=== PATIENT | female | born 1975 | race Caucasian/White ===

== ENCOUNTER 2019-10-05 13:39 | Emergency (ER) | payer MEDICAID, OTHER ==
[~2019-10-05] VITALS: Ht 170.2 cm; Wt 113.6 kg
[2019-10-05 13:50] VITALS: BP 144/90
[2019-10-05] MEDS ORDERED: HYDROcodone/acetaminophen 5mg/325mg tablet PO ONE (14:40)
[2019-10-05] MEDS ORDERED: ondansetron 4mg rapidly disintigrating tab PO ONE (14:40)
[2019-10-05] MEDS ORDERED: IBUP-1984 PO (14:45)
== END 2019-10-05 15:29 | disposition home or self-care (01) ==
LOC: ER 13:39
DX: S93.401A Sprain of unspecified ligament of right ankle, initial encounter (principal); G89.29 Other chronic pain; F12.90 Cannabis use, unspecified, uncomplicated; F15.90 Other stimulant use, unspecified, uncomplicated; Z90.710 Acquired absence of both cervix and uterus; Z88.1 Allergy status to other antibiotic agents; X50.1XXA Overexertion from prolonged static or awkward postures, initial encounter; Y93.01 Activity, walking, marching and hiking; Y92.89 Other specified places as the place of occurrence of the external cause; Y99.9 Unspecified external cause status
CPT/HCPCS: 73610; 99284

== ENCOUNTER 2019-10-07 12:42 | Emergency (ER) | payer MEDICAID, OTHER ==
[~2019-10-07] VITALS: Ht 170.2 cm; Wt 115.7 kg
[~2019-10-07 12:42] MED LIST: IBUP-1984 PO
[2019-10-07 12:54] VITALS: BP 132/82
[2019-10-07] MEDS ORDERED: LAMO50TA PO (14:22)
[2019-10-07] MEDS ORDERED: LURA20TA PO (14:22)
[2019-10-07] MEDS ORDERED: SERT50TA PO (14:22)
[2019-10-07] MEDS ORDERED: TRAZ-251 PO (14:22)
== END 2019-10-07 14:43 | disposition home or self-care (01) ==
LOC: ER 12:43
DX: F31.9 Bipolar disorder, unspecified (principal); I50.9 Heart failure, unspecified; G89.29 Other chronic pain; F10.99 Alcohol use, unspecified with unspecified alcohol-induced disorder; F12.90 Cannabis use, unspecified, uncomplicated; F15.90 Other stimulant use, unspecified, uncomplicated; Z76.0 Encounter for issue of repeat prescription; Z90.710 Acquired absence of both cervix and uterus; Z88.1 Allergy status to other antibiotic agents; Z88.8 Allergy status to other drugs, medicaments and biological substances; Z79.899 Other long term (current) drug therapy; Y90.9 Presence of alcohol in blood, level not specified
CPT/HCPCS: 99283

== ENCOUNTER 2020-03-29 18:16 | Emergency (ER) | payer MEDICAID, OTHER ==
[~2020-03-29] VITALS: Ht 175.3 cm; Wt 113.6 kg
[~2020-03-29 18:16] MED LIST changes: -IBUP-1984 PO; +LURA20TA PO; +TRAZ-251 PO
[2020-03-29 18:44] VITALS: BP 176/99
[2020-03-29] MEDS ORDERED: PERM60CR19 TP ×2 (18:55→19:06)
[2020-03-29] MEDS ORDERED: CETI10TA18 PO (19:07)
== END 2020-03-29 19:25 | disposition home or self-care (01) ==
LOC: ER 18:17
DX: B86 Scabies (principal); I11.0 Hypertensive heart disease with heart failure; I50.9 Heart failure, unspecified; G89.29 Other chronic pain; F12.90 Cannabis use, unspecified, uncomplicated; F15.90 Other stimulant use, unspecified, uncomplicated; Z90.710 Acquired absence of both cervix and uterus; Z72.89 Other problems related to lifestyle; Z88.1 Allergy status to other antibiotic agents; Z88.8 Allergy status to other drugs, medicaments and biological substances; Z79.899 Other long term (current) drug therapy
CPT/HCPCS: 99283

== ENCOUNTER 2020-04-19 18:01 | Emergency (ER) | payer MEDICAID ==
[~2020-04-19] VITALS: Ht 175.3 cm; Wt 114.5 kg
[~2020-04-19 18:01] MED LIST changes: +CETI10TA18 PO; +PERM60CR19 TP
--- NOTE | 2020-04-19 18:32 | NUR ---
Dr. Gloria made aware of the patient's symptoms on the COVID-19 screening, she has been tested for COVID-19 twice and both were negative, most recent two weeks ago.
[2020-04-19 18:53] LABS: BASOPHILS # (AUTO) 0.1 X10'3 (0-0.2); BASOPHILS % (AUTO) 0.4 % (0-1); EOSINOPHILS % (AUTO) 0.3 % (0-6); HEMATOCRIT 41.5 % (35.0-45.0); HEMOGLOBIN 13.9 g/dl (12.0-16.0); LYMPHOCYTES # (AUTO) 1.7 X10'3 (1.1-4.8); LYMPHOCYTES % (AUTO) 11.5 % (21-51); MEAN CORPUSCULAR HGB CONC 33.5 g/dL (33.0-36.5); MEAN CORPUSCULAR VOLUME 86.8 FL (78-98); MEAN PLATELET VOLUME 10.1 FL (7.4-10.4); NEUTROPHILS # (AUTO) 11.9 X10'3 (1.8-7.7); NEUTROPHILS % (AUTO) 80.8 % (42-75); PLATELET COUNT 180 X10'3 (140-440); RED BLOOD COUNT 4.78 X10'6 (4.20-5.60); RED CELL DISTRIBUTION WIDTH 13.4 % (11.5-14.5); WHITE BLOOD COUNT 14.7 X10'3 (4.5-11.0)
[2020-04-19 19:02] LABS: ALANINE AMINOTRANSFERASE 46 U/L (12-78); ALBUMIN/GLOBULIN RATIO 0.9 (1.1-1.5); ALKALINE PHOSPHATASE 85 IU/L (46-116); ANION GAP 9 (8-16); ASPARTATE AMINO TRANSFERASE 24 U/L (10-37); BILIRUBIN,TOTAL 0.4 MG/DL (0.1-1.0); BLOOD UREA NITROGEN 17 MG/DL (7-18); BUN/CREATININE RATIO 17.7 (6.6-38.0); CALCIUM 8.9 MG/DL (8.5-10.1); CHLORIDE 101 MMOL/L (99-107); CREATININE 0.96 MG/DL (0.40-0.90); GLUCOSE 108 MG/DL (70-104); POTASSIUM 3.7 MMOL/L (3.5-5.1); SODIUM 135 MMOL/L (135-145); TOTAL CARBON DIOXIDE 24.6 MMOL/L (24-32); TOTAL PROTEIN 8.3 G/DL (6.4-8.2); eGFR 63 ML/MIN
[2020-04-19 19:22] LABS: D-DIMER 0.32 MG/L FEU (0-0.50)
[2020-04-19] MEDS ORDERED: hydrOXYzine 25 MG tablet PO ONE (19:30)
[2020-04-19] MEDS ORDERED: HYDR50TA65 PO (19:32)
[2020-04-19 19:59] VITALS: BP 128/101
== END 2020-04-19 20:01 | disposition home or self-care (01) ==
LOC: ER 18:01
DX: R07.81 Pleurodynia (principal); R00.2 Palpitations; J02.9 Acute pharyngitis, unspecified; I11.0 Hypertensive heart disease with heart failure; I50.9 Heart failure, unspecified; G89.29 Other chronic pain; F12.90 Cannabis use, unspecified, uncomplicated; F15.90 Other stimulant use, unspecified, uncomplicated; Z90.710 Acquired absence of both cervix and uterus; Z72.89 Other problems related to lifestyle; Z88.1 Allergy status to other antibiotic agents; Z88.8 Allergy status to other drugs, medicaments and biological substances; Z79.899 Other long term (current) drug therapy
CPT/HCPCS: 36415; 71045; 80053; 83880; 84484; 85025; 85379; 93005; 99285; Q0177

== ENCOUNTER 2020-11-26 17:02 | Emergency (ER) | payer MEDICAID ==
[~2020-11-26] VITALS: Ht 175.3 cm; Wt 84.3 kg
[~2020-11-26 17:02] MED LIST changes: +CEPH-572 PO; +HYDR50TA65 PO
[2020-11-26 17:06] VITALS: BP 132/81
[2020-11-26] MEDS ORDERED: VANCOmycin 1250MG/NS 250ml Bag 250 ML IV SCH (18:30)
[2020-11-26] MEDS ORDERED: ketorolac trometh. 30mg/ml inj. IV ONE (18:30)
[2020-11-26] MEDS ORDERED: LIDOcaine 1% 30ml preserv. free vial SQ STA (19:01)
[2020-11-26] MEDS ORDERED: ibuprofen tablet 400 MG TABLET PO ONE (19:10)
[2020-11-26] MEDS ORDERED: tetanus & diphtheria toxoid (Td) vaccine 0.5ml IMVAC ONE (19:10)
[2020-11-26] MEDS ORDERED: TETanus/Pertussis (Acell)/Diphther VAC/PF (Tdap-Adult) 0.5ml syringe IMVAC ONE (19:20)
[2020-11-26] MEDS ORDERED: HYDROcodone/acetaminophen 10/325mg tab PO ONE (20:00)
[2020-11-26] MEDS ORDERED: CEPH500C2 PO (20:01)
[2020-11-26] MEDS ORDERED: SULF1TAB49 PO (20:01)
[2020-11-26] MEDS ORDERED: HYDR-3965 PO (20:02)
[2020-11-26] MEDS ORDERED: CEFTRIAXONE 500 MG VIAL IM ONE (20:10)
[2020-11-26] MEDS ORDERED: CefTRIAXone 1000mg IM Kit (w/lidocaine diluent) IM ONE (20:25)
== END 2020-11-26 20:49 | disposition home or self-care (01) ==
LOC: ER 17:02
DX: L02.416 Cutaneous abscess of left lower limb (principal); I50.9 Heart failure, unspecified; I11.0 Hypertensive heart disease with heart failure; G89.29 Other chronic pain; F12.90 Cannabis use, unspecified, uncomplicated; F15.90 Other stimulant use, unspecified, uncomplicated; Z90.710 Acquired absence of both cervix and uterus; Z88.2 Allergy status to sulfonamides; Z88.8 Allergy status to other drugs, medicaments and biological substances; Z79.2 Long term (current) use of antibiotics; Z79.899 Other long term (current) drug therapy
CPT/HCPCS: 10060; 76882; 87070; 87077; 87186; 90471; 90715; 96372; 99284; J0696

== ENCOUNTER 2021-03-28 10:10 | Emergency (ER) | payer MEDICAID ==
[~2021-03-28] VITALS: Ht 175.3 cm; Wt 115.8 kg
[2021-03-28 11:27] VITALS: BP 155/83
[2021-03-28 11:59] LABS: URINE HCG NEGATIVE (NEG)
[2021-03-28 12:00] LABS: BASOPHILS % (AUTO) 0.5 % (0-1); EOSINOPHILS # (AUTO) 0.1 X10'3 (0-0.9); EOSINOPHILS % (AUTO) 0.6 % (0-6); HEMATOCRIT 43.5 % (35.0-45.0); HEMOGLOBIN 14.7 g/dl (12.0-16.0); LYMPHOCYTES # (AUTO) 1.5 X10'3 (1.1-4.8); LYMPHOCYTES % (AUTO) 17.7 % (21-51); MEAN CORPUSCULAR HEMOGLOBIN 29.2 PG (27.0-31.0); MEAN CORPUSCULAR HGB CONC 33.8 g/dL (33.0-36.5); MEAN CORPUSCULAR VOLUME 86.3 FL (78-98); MEAN PLATELET VOLUME 9.8 FL (7.4-10.4); MONOCYTES # (AUTO) 0.5 X10'3 (0-0.9); MONOCYTES % (AUTO) 6.2 % (2-12); NEUTROPHILS # (AUTO) 6.2 X10'3 (1.8-7.7); PLATELET COUNT 193 X10'3 (140-440); RED BLOOD COUNT 5.04 X10'6 (4.20-5.60); WHITE BLOOD COUNT 8.2 X10'3 (4.5-11.0)
[2021-03-28 12:02] LABS: CLARITY,URINE CLOUDY (Clear); COLOR,URINE YELLOW (Yellow); GLUCOSE, URINE NEGATIVE (Neg); KETONES,URINE NEGATIVE (Neg); LEUKOCYTE ESTERASE ,URINE SMALL (Neg); NITRITES, URINE NEGATIVE (Neg); OCCULT BLOOD,URINE SMALL (Neg); PH,URINE 5.5 (4.8-8.0); PROTEIN,URINE NEGATIVE (Neg); UROBILINOGEN,URINE 0.2 E.U/dL (0.2-1.0)
[2021-03-28 12:06] LABS: UA COLLECTION TYPE CLN CATCH MIDSTREAM
[2021-03-28 12:11] LABS: SQUAMOUS EPITHELIAL CELL,UR MANY /LPF (FEW)
[2021-03-28 12:12] LABS: MUCUS STRANDS FEW /LPF (Neg)
[2021-03-28 12:12] LABS: ANION GAP 10 (8-16); BILIRUBIN,TOTAL 0.6 MG/DL (0.1-1.0); BLOOD UREA NITROGEN 11 MG/DL (7-18); BUN/CREATININE RATIO 11.1 (6.6-38.0); CALCIUM 8.5 MG/DL (8.5-10.1); CHLORIDE 103 MMOL/L (99-107); CREATININE 0.99 MG/DL (0.40-0.90); GLUCOSE 98 MG/DL (70-104); SODIUM 139 MMOL/L (135-145); TOTAL CARBON DIOXIDE 26.5 MMOL/L (24-32); TOTAL PROTEIN 7.5 G/DL (6.4-8.2); eGFR 61 ML/MIN
[2021-03-28 12:13] LABS: ALANINE AMINOTRANSFERASE 161 U/L (12-78); ALBUMIN 3.5 G/DL (3.4-5.0); ALBUMIN/GLOBULIN RATIO 0.9 (1.1-1.5); ALKALINE PHOSPHATASE 80 IU/L (46-116); ASPARTATE AMINO TRANSFERASE 89 U/L (10-37)
[2021-03-28 12:13] LABS: BACTERIA,URINE 2+ /HPF (Neg); URINE AMPHETAMINE SCREEN NEGATIVE (Neg); URINE BARBITUATE SCREEN NEGATIVE (Neg); URINE BENZODIAZEPINES SCREEN NEGATIVE (Neg); URINE CANNABINOID SCREEN POSITIVE (Neg); URINE COCAINE SCREEN NEGATIVE (Neg); URINE METHADONE SCREEN NEGATIVE (Neg); URINE OPIATE SCREEN NEGATIVE (Neg); URINE PHENCYCLIDINE SCREEN NEGATIVE (Neg)
[2021-03-28 12:14] LABS: RBC,URINE 0-2 /HPF (0-2)
[2021-03-28 12:16] LABS: TRANSITIONAL EPI CELLS,URINE FEW /HPF
[2021-03-28 12:25] LABS: ETHANOL < 0.010 GM/DL (0.0-0.010)
--- NOTE | 2021-03-28 15:14 | NUR ---
CHANGED INTO GREEN SCRUBS & BELONGINGS COLLECTED.
--- NOTE | 2021-03-28 19:00 | NUR ---
Patient provided with dinner tray.
[2021-03-28] MEDS ORDERED: LURA60TA PO (19:05)
[2021-03-28] MEDS ORDERED: HYDR50TA65 PO (19:10)
[2021-03-28] MEDS ORDERED: TRAZ-251 PO (19:10)
[2021-03-28] MEDS ORDERED: hydrOXYzine 25 MG tablet PO PRN (20:00)
--- NOTE | 2021-03-28 20:00 | NUR ---
The patient moved to bed 21 in the ER overflow. She was very pleasant and cooperative when approached for the evening assessment. She was very open and honest about sharing her struggles with her mental health leading to relapses with substances. She stated that she has not been taking medications as rx'd. She reports having suicidal thoughts for the past 10 days. She denies prior psychiatric hosptializations. Psychotic symptoms are denied and none were apparent during one to one. She reports racing thoughts and mood lability. She has a 13 year old daughter who lives with her father and she stated that is her reason for living.
--- NOTE | 2021-03-28 20:04 | NUR ---
The patient has been accepted at [facility] by GIN Gonzáles. She will be picked up tomorrow.
[2021-03-28] MEDS ORDERED: lurasidone 60mg tablet PO SCH (21:00)
[2021-03-28] MEDS ORDERED: traZODone 50mg tablet PO SCH (21:00)
--- NOTE | 2021-03-28 21:34 | NUR ---
Covid swab to the lab. Valuables to the safe via registration. HS snack given with [employer]
--- NOTE | 2021-03-28 22:44 | NUR ---
The patient appears to be sleeping
[2021-03-29] MEDS ORDERED: hydrOXYzine 25 MG tablet PO SCH
--- NOTE | 2021-03-29 01:07 | NUR ---
The patient appears to be sleeping
--- NOTE | 2021-03-29 02:51 | NUR ---
The patient appears to be sleeping
--- NOTE | 2021-03-29 05:07 | NUR ---
The patient appears to be sleeping
--- NOTE | 2021-03-29 08:17 | NUR ---
[facility] CALLED AND WILL BE PICKING PT UP AROUND 9A
[2021-03-29] MEDS ORDERED: hydrOXYzine 25 MG tablet PO PRN (21:00)
== END 2021-03-29 10:13 ==
LOC: ER 10:11
DX: F31.81 Bipolar II disorder (principal); Z20.822 Contact with and (suspected) exposure to COVID-19; R45.851 Suicidal ideations; I11.0 Hypertensive heart disease with heart failure; I50.9 Heart failure, unspecified; G89.29 Other chronic pain; F12.90 Cannabis use, unspecified, uncomplicated; F15.90 Other stimulant use, unspecified, uncomplicated; Z90.710 Acquired absence of both cervix and uterus; Z88.1 Allergy status to other antibiotic agents; Z79.899 Other long term (current) drug therapy
CPT/HCPCS: 36415; 80053; 80305; 80320; 81001; 81025; 84443; 85025; 87635; 99285; C9803; Q0177

== ENCOUNTER 2021-12-29 10:18 | Emergency (ER) | payer MEDICAID ==
[~2021-12-29] VITALS: Ht 175.3 cm; Wt 109.0 kg
[~2021-12-29 10:18] MED LIST changes: -CEPH-572 PO; -CETI10TA18 PO; -LURA20TA PO; +LURA60TA PO; -PERM60CR19 TP
[2021-12-29 10:35] VITALS: BP 163/90
[2021-12-29] MEDS ORDERED: QUET-1 PO (11:14)
[2021-12-29] MEDS ORDERED: LURA80TA2 PO (11:14)
[2021-12-29 11:50] LABS: BASOPHILS % (AUTO) 0.7 % (0-1); EOSINOPHILS # (AUTO) 0.1 X10'3 (0-0.9); EOSINOPHILS % (AUTO) 0.9 % (0-6); HEMOGLOBIN 14.7 g/dl (12.0-16.0); LYMPHOCYTES # (AUTO) 1.4 X10'3 (1.1-4.8); LYMPHOCYTES % (AUTO) 22.5 % (21-51); MEAN CORPUSCULAR HEMOGLOBIN 29.1 PG (27.0-31.0); MEAN CORPUSCULAR HGB CONC 34.3 g/dL (33.0-36.5); MEAN CORPUSCULAR VOLUME 84.7 FL (78-98); MEAN PLATELET VOLUME 9.3 FL (7.4-10.4); MONOCYTES # (AUTO) 0.6 X10'3 (0-0.9); MONOCYTES % (AUTO) 8.8 % (2-12); NEUTROPHILS # (AUTO) 4.3 X10'3 (1.8-7.7); NEUTROPHILS % (AUTO) 67.1 % (42-75); PLATELET COUNT 181 X10'3 (140-440); RED BLOOD COUNT 5.07 X10'6 (4.20-5.60); WHITE BLOOD COUNT 6.4 X10'3 (4.5-11.0)
[2021-12-29 12:09] LABS: ALANINE AMINOTRANSFERASE 83 U/L (12-78); ALBUMIN 3.5 G/DL (3.4-5.0); ALBUMIN/GLOBULIN RATIO 0.8 (1.1-1.5); ALKALINE PHOSPHATASE 89 IU/L (46-116); ANION GAP 10 (8-16); ASPARTATE AMINO TRANSFERASE 46 U/L (10-37); BILIRUBIN,TOTAL 0.6 MG/DL (0.1-1.0); BLOOD UREA NITROGEN 12 MG/DL (7-18); BUN/CREATININE RATIO 12.6 (6.6-38.0); CALCIUM 8.3 MG/DL (8.5-10.1); CHLORIDE 102 MMOL/L (99-107); CREATININE 0.95 MG/DL (0.40-0.90); GLUCOSE 126 MG/DL (70-104); POTASSIUM 3.5 MMOL/L (3.5-5.1); SODIUM 138 MMOL/L (135-145); TOTAL CARBON DIOXIDE 25.9 MMOL/L (24-32); TOTAL PROTEIN 7.8 G/DL (6.4-8.2); eGFR 64 ML/MIN
== END 2021-12-29 12:30 | disposition home or self-care (01) ==
LOC: ER 10:18
DX: S31.831A Laceration without foreign body of anus, initial encounter (principal); R10.2 Pelvic and perineal pain; I11.0 Hypertensive heart disease with heart failure; I50.9 Heart failure, unspecified; G89.29 Other chronic pain; F12.90 Cannabis use, unspecified, uncomplicated; F15.90 Other stimulant use, unspecified, uncomplicated; Z88.1 Allergy status to other antibiotic agents; Z90.710 Acquired absence of both cervix and uterus; Z72.89 Other problems related to lifestyle; Z88.8 Allergy status to other drugs, medicaments and biological substances; Z79.899 Other long term (current) drug therapy; X58.XXXA Exposure to other specified factors, initial encounter; Y93.89 Activity, other specified; Y92.89 Other specified places as the place of occurrence of the external cause; Y99.8 Other external cause status
CPT/HCPCS: 36415; 80053; 85025; 99283

== ENCOUNTER 2022-02-25 22:58 | Emergency (ER) | payer MEDICAID ==
[~2022-02-25] VITALS: Ht 175.3 cm; Wt 109.1 kg
[~2022-02-25 22:58] MED LIST changes: -LURA60TA PO; +LURA80TA2 PO; +QUET-1 PO; -TRAZ-251 PO
[2022-02-26] MEDS ORDERED: LIDOcaine 1% W/epiNEPHrine 1:100,000 20ml vial IJ ONE (03:10)
[2022-02-26] MEDS ORDERED: naproxen 500mg tablet PO ONE (03:10)
[2022-02-26] MEDS ORDERED: sulfamethoxazole/trimethoprim DS (800/160mg) tablet PO ONE (03:10)
[2022-02-26] MEDS ORDERED: SULF1TAB49 PO (04:15)
[2022-02-26 04:23] VITALS: BP 160/98
== END 2022-02-26 04:25 | disposition home or self-care (01) ==
LOC: ER 22:59
DX: L02.413 Cutaneous abscess of right upper limb (principal); L03.113 Cellulitis of right upper limb; I11.0 Hypertensive heart disease with heart failure; I50.9 Heart failure, unspecified; G89.29 Other chronic pain; F12.90 Cannabis use, unspecified, uncomplicated; F15.90 Other stimulant use, unspecified, uncomplicated; Z90.710 Acquired absence of both cervix and uterus; Z88.1 Allergy status to other antibiotic agents; Z88.8 Allergy status to other drugs, medicaments and biological substances; Z79.899 Other long term (current) drug therapy
CPT/HCPCS: 10060; 99283

== ENCOUNTER 2022-10-23 00:08 | Emergency (ER) | payer MEDICAID ==
[~2022-10-23] VITALS: Ht 175.3 cm; Wt 106.8 kg
[2022-10-23 00:25] VITALS: BP 127/84
[2022-10-23] MEDS ORDERED: ketorolac trometh inj. 60 MG/2 ML VIAL IM ONE (01:25)
[2022-10-23] MEDS ORDERED: acetaminophen 325mg tablet PO ONE (01:25)
[2022-10-23] MEDS ORDERED: HYDR-3965 PO (01:29)
[2022-10-23] MEDS ORDERED: CYCL-1 PO (01:29)
== END 2022-10-23 02:05 | disposition home or self-care (01) ==
LOC: ER 00:09
DX: M54.50 Low back pain, unspecified (principal); I11.0 Hypertensive heart disease with heart failure; I50.9 Heart failure, unspecified; G89.29 Other chronic pain; F12.90 Cannabis use, unspecified, uncomplicated; F15.20 Other stimulant dependence, uncomplicated; Z88.1 Allergy status to other antibiotic agents; Z91.041 Radiographic dye allergy status; Z88.8 Allergy status to other drugs, medicaments and biological substances
CPT/HCPCS: 96372; 99283; J1885

== ENCOUNTER 2023-03-16 11:44 | Emergency (ER) | payer MEDICAID ==
[~2023-03-16] VITALS: Ht 170.2 cm; Wt 110.0 kg
[~2023-03-16 11:44] MED LIST changes: +CYCL-1 PO
[2023-03-16 12:05] VITALS: BP 156/90
[2023-03-16] MEDS ORDERED: ketorolac trometh inj. 60 MG/2 ML VIAL IM ONE (13:20)
[2023-03-16] MEDS ORDERED: triamcinolone acetonide 40mg/ml inj IM ONE (13:20)
[2023-03-16] MEDS ORDERED: IBUP-1985 PO (13:28)
[2023-03-16] MEDS ORDERED: TRAM50TA2 PO (13:28)
[2023-03-16] MEDS ORDERED: ONDA8TAB13 PO (13:28)
== END 2023-03-16 13:49 | disposition home or self-care (01) ==
LOC: ER 11:44
DX: M54.50 Low back pain, unspecified (principal); R20.0 Anesthesia of skin; M79.605 Pain in left leg; R53.1 Weakness; I11.0 Hypertensive heart disease with heart failure; I50.9 Heart failure, unspecified; G89.29 Other chronic pain; F12.90 Cannabis use, unspecified, uncomplicated; F15.90 Other stimulant use, unspecified, uncomplicated; Z72.89 Other problems related to lifestyle; Z90.710 Acquired absence of both cervix and uterus; Z88.1 Allergy status to other antibiotic agents; Z88.8 Allergy status to other drugs, medicaments and biological substances; Z79.899 Other long term (current) drug therapy
CPT/HCPCS: 96372; 99284; J1885; J3301

== ENCOUNTER 2024-07-31 23:31 | Emergency (ER) | payer BC, MEDICAID ==
[~2024-07-31] VITALS: Ht 170.2 cm; Wt 114.7 kg
[~2024-07-31 23:31] MED LIST changes: +IBUP-1985 PO; +ONDA-245 PO
[2024-07-31 23:35] VITALS: TEMP 97.1
[2024-08-01] MEDS ORDERED: LISI10TA27 PO (01:09)
[2024-08-01 01:14] LABS: BASOPHILS # (AUTO) 0.1 X10'3 (0-0.2); BASOPHILS % (AUTO) 0.7 % (0-1); MONOCYTES # (AUTO) 0.7 X10'3 (0-0.9); NEUTROPHILS # (AUTO) 5.3 X10'3 (1.8-7.7); PLATELET COUNT 202 X10'3 (140-440)
[2024-08-01 01:16] LABS: EOSINOPHILS # (AUTO) 0.2 X10'3 (0-0.9); EOSINOPHILS % (AUTO) 1.9 % (0-6); HEMATOCRIT 39.4 % (35.0-45.0); HEMOGLOBIN 13.3 g/dl (12.0-16.0); LYMPHOCYTES # (AUTO) 2.7 X10'3 (1.1-4.8); LYMPHOCYTES % (AUTO) 30.3 % (21-51); MEAN CORPUSCULAR HEMOGLOBIN 28.3 PG (27.0-31.0); MEAN CORPUSCULAR HGB CONC 33.8 g/dL (33.0-36.5); MEAN CORPUSCULAR VOLUME 83.9 FL (78-98); MEAN PLATELET VOLUME 9.3 FL (7.4-10.4); MONOCYTES % (AUTO) 8.1 % (2-12); RED CELL DISTRIBUTION WIDTH 13.5 % (11.5-14.5)
[2024-08-01] MEDS: lisinopril 10 MG tablet PO ONE (01:18)
[2024-08-01 01:26] LABS: ALBUMIN 3.5 G/DL (3.4-5.0); ANION GAP 9 (8-16); BLOOD UREA NITROGEN 12 MG/DL (7-18); BUN/CREATININE RATIO 11.8 (10.0-20.0); CALCIUM 8.5 MG/DL (8.5-10.1); CHLORIDE 103 MMOL/L (99-107); CREATININE 1.02 MG/DL (0.40-0.90); GLUCOSE 136 MG/DL (70-104); POTASSIUM 3.2 MMOL/L (3.5-5.1); SODIUM 138 MMOL/L (135-145); TOTAL CARBON DIOXIDE 25.8 MMOL/L (24-32); eCRCL 66 ML/MIN; eGFR 58 ML/MIN
[2024-08-01] MEDS ORDERED: POTA-207 PO (01:46)
[2024-08-01 02:11] VITALS: BP 149/79; PULSE 87; RESP 15; O2SAT 100
== END 2024-08-01 02:13 | disposition home or self-care (01) ==
LOC: ER 23:32
DX: N93.8 Other specified abnormal uterine and vaginal bleeding (principal); I11.0 Hypertensive heart disease with heart failure; I50.9 Heart failure, unspecified; G89.29 Other chronic pain; F12.90 Cannabis use, unspecified, uncomplicated; F15.90 Other stimulant use, unspecified, uncomplicated; Z72.89 Other problems related to lifestyle; Z90.710 Acquired absence of both cervix and uterus; Z88.1 Allergy status to other antibiotic agents; Z79.899 Other long term (current) drug therapy
CPT/HCPCS: 36415; 80048; 85025; 99283

== ENCOUNTER 2024-08-31 14:34 | Inpatient (IN) | payer BC ==
[~2024-08-31] VITALS: Ht 170.2 cm; Wt 118.2 kg
[~2024-08-31 14:34] MED LIST changes: +LISI10TA27 PO; +POTA-207 PO
[2024-08-31 15:22] LABS: BILIRUBIN,URINE NEGATIVE (Neg); CLARITY,URINE CLOUDY (Clear); COLOR,URINE YELLOW (Yellow); GLUCOSE, URINE >=1000 mg/dl (Neg); KETONES,URINE NEGATIVE (Neg); LEUKOCYTE ESTERASE ,URINE SMALL (Neg); NITRITES, URINE POSITIVE (Neg); OCCULT BLOOD,URINE LARGE (Neg); PROTEIN,URINE 100 mg/dl (Neg); UROBILINOGEN,URINE 0.2 E.U/dL (0.2-1.0)
[2024-08-31 15:42] LABS: UA COLLECTION TYPE CLN CATCH MIDSTREAM
[2024-08-31 15:43] LABS: BASOPHILS % (AUTO) 0.3 % (0-1); EOSINOPHILS % (AUTO) 0.1 % (0-6); HEMATOCRIT 44.2 % (35.0-45.0); LYMPHOCYTES # (AUTO) 0.3 X10'3 (1.1-4.8); LYMPHOCYTES % (AUTO) 5.2 % (21-51); MEAN CORPUSCULAR HEMOGLOBIN 28.2 PG (27.0-31.0); MEAN CORPUSCULAR HGB CONC 33.9 g/dL (33.0-36.5); MEAN CORPUSCULAR VOLUME 83.1 FL (78-98); MEAN PLATELET VOLUME 8.5 FL (7.4-10.4); MONOCYTES % (AUTO) 0.6 % (2-12); NEUTROPHILS # (AUTO) 5.6 X10'3 (1.8-7.7); NEUTROPHILS % (AUTO) 93.8 % (42-75); PLATELET COUNT 198 X10'3 (140-440); RED BLOOD COUNT 5.31 X10'6 (4.20-5.60); RED CELL DISTRIBUTION WIDTH 13.7 % (11.5-14.5); WHITE BLOOD COUNT 5.9 X10'3 (4.5-11.0)
[2024-08-31 15:48] LABS: SQUAMOUS EPITHELIAL CELL,UR FEW /LPF (FEW); WBC,URINE TNTC /HPF (0-4)
[2024-08-31 15:49] LABS: BACTERIA,URINE 4+ /HPF (Neg)
[2024-08-31 16:13] LABS: ALANINE AMINOTRANSFERASE 35 U/L (12-78); ALBUMIN 3.3 G/DL (3.4-5.0); ALBUMIN/GLOBULIN RATIO 0.6 (1.1-1.5); ALKALINE PHOSPHATASE 176 IU/L (46-116); ANION GAP 11 (8-16); ASPARTATE AMINO TRANSFERASE 31 U/L (10-37); BILIRUBIN,TOTAL 0.9 MG/DL (0.1-1.0); BLOOD UREA NITROGEN 14 MG/DL (7-18); BUN/CREATININE RATIO 10.4 (10.0-20.0); CALCIUM 9.1 MG/DL (8.5-10.1); CHLORIDE 96 MMOL/L (99-107); CREATININE 1.34 MG/DL (0.40-0.90); GLUCOSE 143 MG/DL (70-104); POTASSIUM 4.3 MMOL/L (3.5-5.1); SODIUM 131 MMOL/L (135-145); TOTAL PROTEIN 8.8 G/DL (6.4-8.2); eCRCL 50 ML/MIN; eGFR 42 ML/MIN
[2024-08-31] MEDS: ondansetron/PF 4mg/2ml inj IV ONE (16:59)
[2024-08-31] MEDS: morphine 4 MG/ML inj SYRINge IV ONE (16:59)
[2024-08-31] MEDS: CefTRIAXone 2gm/D5W 50ml BAG 50 ML IV ONE (17:00)
[2024-08-31] MEDS: normal saline 1000ML IV soln IV ONE (17:00)
[2024-08-31] MEDS: vancomycin/NS 1 GM ADD-VANTAGE 250 ML IV ONE (17:46)
[2024-08-31] MEDS: acetaminophen 325mg tablet PO ONE (17:48)
[2024-08-31] MEDS ORDERED: ondansetron/PF 4mg/2ml inj IV PRN (17:55)
[2024-08-31] MEDS ORDERED: potassium Cl 40MEQ/1/2NS 520ml 520 ML IV PRN (17:55)
[2024-08-31] MEDS ORDERED: mag hydrox/Alum hydrox/simeth 30ml oral suspension PO PRN (17:55)
[2024-08-31] MEDS ORDERED: magnesium sulf-water 4G/100mL 100 ML IV PRN (17:55)
[2024-08-31] MEDS ORDERED: magnesium sulf-water 2g/50mL 50 ML IV PRN (17:55)
[2024-08-31] MEDS ORDERED: magnesium Cl slow-release 64mg tablet PO PRN (17:55)
[2024-08-31] MEDS ORDERED: potassium Cl 20 mEq SR tablet PO PRN ×2 (17:55)
[2024-08-31] MEDS ORDERED: piperacillin/tazo 3.375gm/50ml 50 ML IV SCH (18:00)
[2024-08-31] MEDS: K and/or MAG REPLACEMENT MC SCH (20:00)
[2024-08-31] MEDS: docusate sod 100mg capsule PO SCH (20:00)
[2024-08-31] MEDS: normal saline 1000ml 1,000 ML IV SCH (20:29)
[2024-08-31 20:36] LABS: URINE AMPHETAMINE SCREEN POSITIVE (Neg); URINE BARBITUATE SCREEN NEGATIVE (Neg); URINE BENZODIAZEPINES SCREEN NEGATIVE (Neg); URINE CANNABINOID SCREEN NEGATIVE (Neg); URINE COCAINE SCREEN NEGATIVE (Neg); URINE METHADONE SCREEN NEGATIVE (Neg); URINE OPIATE SCREEN POSITIVE (Neg); URINE PHENCYCLIDINE SCREEN NEGATIVE (Neg)
[2024-08-31] MEDS: heparin, porcine 5000 units/ml vial SQ SCH (20:47)
[2024-09-01] VITALS (8 sets, daily range): BP systolic 88–130; BP diastolic 50–61; PULSE 66–131; RESP 12–39; TEMP 96.9–99.9; O2SAT 95–98
[2024-09-01] MEDS ORDERED: OMEP40CA21 PO (01:41)
[2024-09-01] MEDS ORDERED: LAMO100T40 PO (01:41)
[2024-09-01] MEDS ORDERED: HYDR-3686 PO (01:44)
[2024-09-01] MEDS ORDERED: ATOR10TA70 PO (01:46)
[2024-09-01] MEDS: LORazepam 1 MG tablet PO PRN (01:50)
[2024-09-01] MEDS: HYDROmorphone inj. 0.5 MG/0.5 ML DISP.SYRIN IV PRN (02:37)
[2024-09-01 06:55] LABS: ALANINE AMINOTRANSFERASE 87 U/L (12-78); ALBUMIN 2.4 G/DL (3.4-5.0); ALBUMIN/GLOBULIN RATIO 0.6 (1.1-1.5); ALKALINE PHOSPHATASE 160 IU/L (46-116); ANION GAP 10 (8-16); ASPARTATE AMINO TRANSFERASE 81 U/L (10-37); BILIRUBIN,TOTAL 1.1 MG/DL (0.1-1.0); BLOOD UREA NITROGEN 15 MG/DL (7-18); BUN/CREATININE RATIO 11.1 (10.0-20.0); CALCIUM 7.7 MG/DL (8.5-10.1); CHLORIDE 100 MMOL/L (99-107); CREATININE 1.35 MG/DL (0.40-0.90); GLUCOSE 135 MG/DL (70-104); MAGNESIUM 1.5 MG/DL (1.5-2.4); SODIUM 132 MMOL/L (135-145); TOTAL CARBON DIOXIDE 21.8 MMOL/L (24-32); TOTAL PROTEIN 6.7 G/DL (6.4-8.2); eCRCL 50 ML/MIN; eGFR 42 ML/MIN
[2024-09-01 07:00] LABS: POTASSIUM 4.5 MMOL/L (3.5-5.1)
[2024-09-01 07:09] LABS: BASOPHILS % (AUTO) 0.2 % (0-1); EOSINOPHILS % (AUTO) 0.1 % (0-6); HEMATOCRIT 36.1 % (35.0-45.0); LYMPHOCYTES # (AUTO) 0.3 X10'3 (1.1-4.8); LYMPHOCYTES % (AUTO) 2.5 % (21-51); MEAN CORPUSCULAR HEMOGLOBIN 27.9 PG (27.0-31.0); MEAN CORPUSCULAR HGB CONC 33.4 g/dL (33.0-36.5); MEAN CORPUSCULAR VOLUME 83.7 FL (78-98); MEAN PLATELET VOLUME 9.7 FL (7.4-10.4); MONOCYTES # (AUTO) 0.6 X10'3 (0-0.9); MONOCYTES % (AUTO) 5.3 % (2-12); NEUTROPHILS # (AUTO) 10.9 X10'3 (1.8-7.7); NEUTROPHILS % (AUTO) 91.9 % (42-75); PLATELET COUNT 138 X10'3 (140-440); RED BLOOD COUNT 4.31 X10'6 (4.20-5.60); RED CELL DISTRIBUTION WIDTH 13.6 % (11.5-14.5); WHITE BLOOD COUNT 11.9 X10'3 (4.5-11.0)
[2024-09-01] MEDS ORDERED: CefTRIAXone/D5W-Rocephin 1gm 50 ML IV SCH (08:00)
[2024-09-01] MEDS: pantoprazole 40mg Tablet.DR PO SCH (08:44)
[2024-09-01] MEDS: CefTRIAXone/D5W-Rocephin 1gm 50 ML IV SCH (08:46)
[2024-09-01] MEDS: atorvastatin 10mg tablet PO SCH (09:26)
[2024-09-01] MEDS: lisinopril 10 MG tablet PO SCH (09:27)
[2024-09-01] MEDS ORDERED: metoprolol tartrate 1mg/ml inj IV ONE (10:50)
[2024-09-01 11:40] LABS: D-DIMER 8.39 MG/L FEU (0-0.50)
[2024-09-01] MEDS: HEPARIN DRIP DVT/PE -**PHARMACIST TO DOSE IV ONE (12:30)
[2024-09-01] MEDS ORDERED: heparin 10,000 units/1 ML INJ IV PRN (12:45)
[2024-09-01] MEDS: HEPARIN DRIP INITAL BOLUS --- DO NOT GIVE/ORDER MC ONE (12:45)
[2024-09-01] MEDS: MESSAGE TO NURSING IV ONE (13:00)
[2024-09-01] MEDS: heparin 25,000 UNIT/250ml bag 250 ML IV PRN (14:31)
[2024-09-01] MEDS ORDERED: LORazepam 2 mg/ml vial IV PRN (15:55)
[2024-09-01] MEDS: propranolol 10mg tablet PO ONE (16:09)
[2024-09-01] MEDS ORDERED: iohexol 350MG/ML 100ml bottle IV ONE (17:29)
[2024-09-01] MEDS: morphine 2 MG/ML inj. syringe IV PRN (19:37)
[2024-09-01] MEDS: hydrOXYzine 25 MG tablet PO SCH (19:41)
[2024-09-01] MEDS: lurasidone 20mg tablet PO SCH (19:42)
[2024-09-01] MEDS: propranolol 10mg tablet PO SCH (19:43)
[2024-09-02] VITALS (7 sets, daily range): BP systolic 98–140; BP diastolic 51–90; PULSE 81–89; RESP 16–20; TEMP 96.8–98.1; O2SAT 95–99
[2024-09-02] MEDS: acetaminophen 325mg tablet PO PRN (02:51)
[2024-09-02 06:43] LABS: BASOPHILS # (AUTO) 0.1 X10'3 (0-0.2); EOSINOPHILS # (AUTO) 0.1 X10'3 (0-0.9); LYMPHOCYTES # (AUTO) 1.5 X10'3 (1.1-4.8)
[2024-09-02 06:45] LABS: BASOPHILS % (AUTO) 0.7 % (0-1); HEMATOCRIT 35.3 % (35.0-45.0); HEMOGLOBIN 11.8 g/dl (12.0-16.0); LYMPHOCYTES % (AUTO) 11.8 % (21-51); MEAN CORPUSCULAR HGB CONC 33.5 g/dL (33.0-36.5); MEAN CORPUSCULAR VOLUME 83.6 FL (78-98); MEAN PLATELET VOLUME 9.9 FL (7.4-10.4); MONOCYTES # (AUTO) 1.4 X10'3 (0-0.9); MONOCYTES % (AUTO) 11.3 % (2-12); NEUTROPHILS # (AUTO) 9.4 X10'3 (1.8-7.7); NEUTROPHILS % (AUTO) 75.2 % (42-75); PLATELET COUNT 140 X10'3 (140-440); RED BLOOD COUNT 4.22 X10'6 (4.20-5.60); RED CELL DISTRIBUTION WIDTH 13.6 % (11.5-14.5); WHITE BLOOD COUNT 12.5 X10'3 (4.5-11.0)
[2024-09-02 07:07] LABS: ALANINE AMINOTRANSFERASE 88 U/L (12-78); ALBUMIN 2.2 G/DL (3.4-5.0); ALBUMIN/GLOBULIN RATIO 0.6 (1.1-1.5); ALKALINE PHOSPHATASE 144 IU/L (46-116); ANION GAP 8 (8-16); ASPARTATE AMINO TRANSFERASE 88 U/L (10-37); BILIRUBIN,TOTAL 0.3 MG/DL (0.1-1.0); BLOOD UREA NITROGEN 15 MG/DL (7-18); BUN/CREATININE RATIO 17.9 (10.0-20.0); CHLORIDE 105 MMOL/L (99-107); CREATININE 0.84 MG/DL (0.40-0.90); GLUCOSE 137 MG/DL (70-104); POTASSIUM 3.5 MMOL/L (3.5-5.1); SODIUM 137 MMOL/L (135-145); TOTAL CARBON DIOXIDE 23.7 MMOL/L (24-32); TOTAL PROTEIN 6.2 G/DL (6.4-8.2); eCRCL 80 ML/MIN; eGFR 72 ML/MIN
[2024-09-02] MEDS: heparin, porcine 5000 units/ml vial SQ SCH (07:58)
[2024-09-02] MEDS: LAMOTRIGINE 100 MG PO SCH (08:00)
[2024-09-02] MEDS ORDERED: non-formulary drug (Omeprazole (Prilosec) 1 CAP) PO SCH (08:00)
[2024-09-03] VITALS (8 sets, daily range): BP systolic 130–141; BP diastolic 67–87; PULSE 81–91; RESP 16–22; TEMP 97.3–98.3; O2SAT 93–98
[2024-09-03 06:01] LABS: BASOPHILS % (AUTO) 0.6 % (0-1); EOSINOPHILS # (AUTO) 0.1 X10'3 (0-0.9); EOSINOPHILS % (AUTO) 1.4 % (0-6); HEMATOCRIT 36.3 % (35.0-45.0); HEMOGLOBIN 12.2 g/dl (12.0-16.0); LYMPHOCYTES # (AUTO) 1.5 X10'3 (1.1-4.8); LYMPHOCYTES % (AUTO) 18.5 % (21-51); MEAN CORPUSCULAR HEMOGLOBIN 27.8 PG (27.0-31.0); MEAN CORPUSCULAR HGB CONC 33.7 g/dL (33.0-36.5); MEAN CORPUSCULAR VOLUME 82.3 FL (78-98); MEAN PLATELET VOLUME 9.4 FL (7.4-10.4); MONOCYTES # (AUTO) 0.7 X10'3 (0-0.9); NEUTROPHILS # (AUTO) 5.7 X10'3 (1.8-7.7); NEUTROPHILS % (AUTO) 70.5 % (42-75); PLATELET COUNT 167 X10'3 (140-440); RED BLOOD COUNT 4.41 X10'6 (4.20-5.60); RED CELL DISTRIBUTION WIDTH 13.5 % (11.5-14.5); WHITE BLOOD COUNT 8.1 X10'3 (4.5-11.0)
[2024-09-03 06:31] LABS: ALANINE AMINOTRANSFERASE 75 U/L (12-78); ALBUMIN 2.4 G/DL (3.4-5.0); ALBUMIN/GLOBULIN RATIO 0.5 (1.1-1.5); ALKALINE PHOSPHATASE 139 IU/L (46-116); ANION GAP 11 (8-16); ASPARTATE AMINO TRANSFERASE 72 U/L (10-37); BILIRUBIN,TOTAL 0.3 MG/DL (0.1-1.0); BLOOD UREA NITROGEN 13 MG/DL (7-18); BUN/CREATININE RATIO 17.3 (10.0-20.0); CALCIUM 8.4 MG/DL (8.5-10.1); CHLORIDE 103 MMOL/L (99-107); CREATININE 0.75 MG/DL (0.40-0.90); GLUCOSE 100 MG/DL (70-104); MAGNESIUM 1.8 MG/DL (1.5-2.4); POTASSIUM 3.9 MMOL/L (3.5-5.1); SODIUM 138 MMOL/L (135-145); TOTAL CARBON DIOXIDE 24.3 MMOL/L (24-32); TOTAL PROTEIN 6.8 G/DL (6.4-8.2); eCRCL 89 ML/MIN; eGFR 82 ML/MIN
[2024-09-03 09:51] LABS: TOTAL CELLS COUNTED 100
[2024-09-03 09:52] LABS: PLATELET ESTIMATE NORMAL
[2024-09-03] MEDS: vancomycin/NS 1 GM ADD-VANTAGE 250 ML IV SCH (15:07)
[2024-09-03] MEDS: Melatonin 3mg tablet PO SCH (22:49)
[2024-09-04] VITALS (7 sets, daily range): BP systolic 136–146; BP diastolic 79–87; PULSE 72–76; RESP 12–20; TEMP 97.2–97.8; O2SAT 93–96
[2024-09-04 07:22] LABS: BASOPHILS # (AUTO) 0.1 X10'3 (0-0.2); BASOPHILS % (AUTO) 0.6 % (0-1); EOSINOPHILS # (AUTO) 0.1 X10'3 (0-0.9); EOSINOPHILS % (AUTO) 1.5 % (0-6); HEMATOCRIT 37.7 % (35.0-45.0); HEMOGLOBIN 12.8 g/dl (12.0-16.0); MEAN CORPUSCULAR HEMOGLOBIN 28.1 PG (27.0-31.0); MEAN CORPUSCULAR HGB CONC 34.1 g/dL (33.0-36.5); MEAN CORPUSCULAR VOLUME 82.4 FL (78-98); MEAN PLATELET VOLUME 9.1 FL (7.4-10.4); MONOCYTES # (AUTO) 0.8 X10'3 (0-0.9); MONOCYTES % (AUTO) 9.6 % (2-12); NEUTROPHILS # (AUTO) 5.6 X10'3 (1.8-7.7); NEUTROPHILS % (AUTO) 65.3 % (42-75); PLATELET COUNT 189 X10'3 (140-440); RED BLOOD COUNT 4.57 X10'6 (4.20-5.60); RED CELL DISTRIBUTION WIDTH 13.2 % (11.5-14.5); WHITE BLOOD COUNT 8.7 X10'3 (4.5-11.0)
[2024-09-04 07:29] LABS: ALANINE AMINOTRANSFERASE 70 U/L (12-78); ALBUMIN 2.6 G/DL (3.4-5.0); ALBUMIN/GLOBULIN RATIO 0.6 (1.1-1.5); ALKALINE PHOSPHATASE 150 IU/L (46-116); ANION GAP 9 (8-16); ASPARTATE AMINO TRANSFERASE 47 U/L (10-37); BILIRUBIN,TOTAL 0.3 MG/DL (0.1-1.0); BLOOD UREA NITROGEN 16 MG/DL (7-18); BUN/CREATININE RATIO 18.4 (10.0-20.0); CALCIUM 8.8 MG/DL (8.5-10.1); CHLORIDE 104 MMOL/L (99-107); CREATININE 0.87 MG/DL (0.40-0.90); GLUCOSE 109 MG/DL (70-104); SODIUM 139 MMOL/L (135-145); TOTAL CARBON DIOXIDE 26.2 MMOL/L (24-32); eCRCL 77 ML/MIN; eGFR 69 ML/MIN
[2024-09-04 12:07] LABS: PLATELET ESTIMATE NORMAL; POLYCHROMASIA 1+; TOTAL CELLS COUNTED 100
[2024-09-04] MEDS: VANCOMYCIN LEVEL IV ONE (12:10)
[2024-09-04] MEDS: magnesium hydroxide 30ml (MOM) UD suspension PO PRN (17:35)
[2024-09-05 02:00] VITALS: BP 146/86; PULSE 79; RESP 16; TEMP 97.1; O2SAT 94
[2024-09-05 06:00] VITALS: BP 143/84; PULSE 77; RESP 20; TEMP 97.6; O2SAT 93
[2024-09-05 08:31] LABS: BASOPHILS # (AUTO) 0.1 X10'3 (0-0.2); BASOPHILS % (AUTO) 0.8 % (0-1); EOSINOPHILS # (AUTO) 0.1 X10'3 (0-0.9); EOSINOPHILS % (AUTO) 1.1 % (0-6); HEMATOCRIT 37.5 % (35.0-45.0); HEMOGLOBIN 12.7 g/dl (12.0-16.0); LYMPHOCYTES # (AUTO) 2.4 X10'3 (1.1-4.8); MEAN CORPUSCULAR HEMOGLOBIN 27.6 PG (27.0-31.0); MEAN CORPUSCULAR HGB CONC 33.8 g/dL (33.0-36.5); MEAN CORPUSCULAR VOLUME 81.7 FL (78-98); MEAN PLATELET VOLUME 9.1 FL (7.4-10.4); MONOCYTES % (AUTO) 8.6 % (2-12); NEUTROPHILS # (AUTO) 7.8 X10'3 (1.8-7.7); NEUTROPHILS % (AUTO) 68.5 % (42-75); PLATELET COUNT 225 X10'3 (140-440); RED BLOOD COUNT 4.59 X10'6 (4.20-5.60); RED CELL DISTRIBUTION WIDTH 13.4 % (11.5-14.5); WHITE BLOOD COUNT 11.4 X10'3 (4.5-11.0)
[2024-09-05 09:02] LABS: ALANINE AMINOTRANSFERASE 60 U/L (12-78); ALBUMIN 2.6 G/DL (3.4-5.0); ALBUMIN/GLOBULIN RATIO 0.6 (1.1-1.5); ALKALINE PHOSPHATASE 122 IU/L (46-116); ANION GAP 7 (8-16); ASPARTATE AMINO TRANSFERASE 37 U/L (10-37); BILIRUBIN,TOTAL 0.4 MG/DL (0.1-1.0); BLOOD UREA NITROGEN 16 MG/DL (7-18); BUN/CREATININE RATIO 17.4 (10.0-20.0); CALCIUM 8.6 MG/DL (8.5-10.1); CHLORIDE 104 MMOL/L (99-107); CREATININE 0.92 MG/DL (0.40-0.90); GLUCOSE 111 MG/DL (70-104); POTASSIUM 4.4 MMOL/L (3.5-5.1); SODIUM 138 MMOL/L (135-145); TOTAL CARBON DIOXIDE 27.2 MMOL/L (24-32); TOTAL PROTEIN 6.9 G/DL (6.4-8.2); eCRCL 73 ML/MIN; eGFR 65 ML/MIN
[2024-09-05] MEDS: VANCOMYCIN LEVEL IV ONE (11:35)
[2024-09-05 11:37] VITALS: BP 122/72; PULSE 78; RESP 14; TEMP 97.2; O2SAT 93
[2024-09-05] MEDS ORDERED: LACT1CAP26 PO (15:15)
[2024-09-05] MEDS ORDERED: CEFD300C3 PO (15:15)
[2024-09-05 15:41] VITALS: BP 130/79; PULSE 75; RESP 12; TEMP 97.2; O2SAT 98
[2024-09-06] MEDS ORDERED: VANCOmycin 1250MG/NS 250ml Bag 250 ML IV SCH (01:00)
[2024-09-07] MEDS ORDERED: VANCOMYCIN LEVEL IV ONE (12:30)
== END 2024-09-05 16:10 | disposition home or self-care (01) | DRG 871 ==
LOC: ER 14:34 → ED HOLD 17:30 → PCU 3S 09-01 02:00
PROVIDERS: ADMIT Family Medicine; ATTEND Family Medicine
PROC: B32T1ZZ Computerized Tomography (CT Scan) of Left Pulmonary Artery using Low Osmolar Contrast (ICD-10-PCS; principal; 2024-09-01)
PROC: B3201ZZ Computerized Tomography (CT Scan) of Thoracic Aorta using Low Osmolar Contrast (ICD-10-PCS; 2024-09-01)
PROC: B32S1ZZ Computerized Tomography (CT Scan) of Right Pulmonary Artery using Low Osmolar Contrast (ICD-10-PCS; 2024-09-01)
DX: A41.9 Sepsis, unspecified organism (principal); N17.0 Acute kidney failure with tubular necrosis; N10 Acute pyelonephritis; N20.1 Calculus of ureter; I11.0 Hypertensive heart disease with heart failure; I50.9 Heart failure, unspecified; E78.5 Hyperlipidemia, unspecified; I87.8 Other specified disorders of veins; F15.10 Other stimulant abuse, uncomplicated; G89.29 Other chronic pain; F31.9 Bipolar disorder, unspecified; Z88.1 Allergy status to other antibiotic agents; Z79.899 Other long term (current) drug therapy; Z90.49 Acquired absence of other specified parts of digestive tract; Z90.710 Acquired absence of both cervix and uterus
CPT/HCPCS: 36415; 71045; 71275; 74176; 80053; 80202; 80305; 81001; 83605; 83735; 83880; 84145; 85007; 85025; 85379; 85730; 87040; 87077; 87081; 87088; 87186; 93306; 93970; 96365; 96375; 99291; G0378; J0696; J1171; J1644; J2270; J2405; J3370; J7030; J7040; Q0177; Q9967

== ENCOUNTER → 2025-08-23 | Day surgery (SDC) | payer BC ==
[~2025-08-23] VITALS: Ht 170.2 cm; Wt 115.7 kg
[~2025-08-23] MED LIST changes: +BACL20TA PO; -CYCL-1 PO; +HYDR-3686 PO; -HYDR50TA65 PO; -IBUP-1985 PO; +LAMO100T40 PO; -LISI10TA27 PO; +LISI5TAB22 PO; -ONDA-245 PO; -POTA-207 PO; -QUET-1 PO; +ringers solution, lacted 1,000 ML IV SCH
[2025-08-23 11:31] VITALS: RESP 15; O2SAT 98
[2025-08-23 11:34] VITALS: BP 145/91; PULSE 71; RESP 15; TEMP 97.9; O2SAT 98
== END | disposition home or self-care (01) ==
LOC: GI LAB 09:41
PROVIDERS: ATTEND Internal Medicine Gastroenterology
DX: R11.2 Nausea with vomiting, unspecified (principal); Z53.8 Procedure and treatment not carried out for other reasons; I10 Essential (primary) hypertension; E66.9 Obesity, unspecified; K21.9 Gastro-esophageal reflux disease without esophagitis; E78.5 Hyperlipidemia, unspecified; F41.9 Anxiety disorder, unspecified; F31.9 Bipolar disorder, unspecified; Z79.899 Other long term (current) drug therapy; Z90.49 Acquired absence of other specified parts of digestive tract; Z98.890 Other specified postprocedural states; Z68.39 Body mass index [BMI] 39.0-39.9, adult; Z88.1 Allergy status to other antibiotic agents; Z88.8 Allergy status to other drugs, medicaments and biological substances
CPT/HCPCS: A6258; J7120; A4615

== ENCOUNTER 2025-08-24 09:53 | Day surgery (SDC) | payer BC ==
[2025-08-24] VITALS (8 sets, daily range): BP systolic 134–148; BP diastolic 62–84; PULSE 70–74; RESP 14–18; O2SAT 85–100
[~2025-08-24 09:53] MED LIST changes: -ringers solution, lacted 1,000 ML IV SCH
[2025-08-24] MEDS ORDERED: propofol 10mg/ml 20ml vial IV ONE (11:34)
== END 2025-08-24 12:42 | disposition home or self-care (01) ==
LOC: PAS 09:53
PROVIDERS: ATTEND Internal Medicine Gastroenterology
DX: K30 Functional dyspepsia (principal); K31.89 Other diseases of stomach and duodenum; I10 Essential (primary) hypertension; E66.9 Obesity, unspecified; Z79.899 Other long term (current) drug therapy; Z90.49 Acquired absence of other specified parts of digestive tract; Z98.890 Other specified postprocedural states; Z88.1 Allergy status to other antibiotic agents; Z88.8 Allergy status to other drugs, medicaments and biological substances; Z68.39 Body mass index [BMI] 39.0-39.9, adult
CPT/HCPCS: 43239; J2704; J7120; Z7512; A4615